=== PATIENT | male | born 1960 | race Caucasian/White ===

== ENCOUNTER 2016-05-12 18:54 | Emergency (ER) | payer OTHER ==
[2016-05-12 19:02] VITALS: BP 133/95; PULSE 76; TEMP 98.1; BMI 22.6
--- NOTE | 2016-05-12 19:24 | PDOC ---
History of Present Illness - General History Source: Patient Exam Limitations: No Limitations - History of Present Illness Initial Comments: 05/12/16 19:43 The patient is a 55 year old male, with no significant past medical history, who presents to the emergency department with a tick bite to left side of his head. This evening, the patient reports that he felt a small lump on left side of his head. A family member with him removed a tick from the left side of his head. The patient presents to the ED for further evaluation. The patient has no other complaints currently in the ED. Allergies: None reported. <Margareth Herrera - Last Filed: 05/12/16 19:45> <Iqra Walsh - Last Filed: 05/12/16 23:53> - General Chief Complaint: Bite Stated Complaint: "I HAVE A TICK BITE" Time Seen by Provider: 05/12/16 19:19 Past History <Margareth Herrera - Last Filed: 05/12/16 19:45> - Past Medical History Suicide Attempt (Hx): No Other medical history: DENIES - Psycho/Social/Smoking Cessation Hx Anxiety: No Suicidal Ideation: No Smoking Status: No Smoking History: Never smoked Number of Cigarettes Smoked Daily: 0 Hx Alcohol Use: No Drug/Substance Use Hx: No Substance Use Type: None <Iqra Walsh - Last Filed: 05/12/16 23:53> - Past Medical History Allergies/Adverse Reactions: Allergies Allergy/AdvReac Type Severity Reaction Status Date / Time No Known Allergies Allergy Verified 05/12/16 18:57 Home Medications: Ambulatory Orders No Home Medications 03/23/12 Doxycycline Hyclate 100 mg PO BID #28 capsule 05/12/16 Review of Systems - Review of Systems Able to Perform ROS?: Yes Comments:: 05/12/16 19:39 GENERAL/CONSTITUTIONAL: No fever or chills. No weakness. HEAD: +Tick bite to the left side of the head. SKIN: No rash. <Margareth Herrera - Last Filed: 05/12/16 19:45> *Physical Exam - Vital Signs Last Vital Signs Temp Pulse Resp BP Pulse Ox 98.1 F 76 18 133/95 97 05/12/16 18:55 05/12/16 18:55 05/12/16 18:55 05/12/16 18:55 05/12/16 18:55 - Physical Exam Comments: 05/12/16 19:36 GENERAL: Awake, alert, and fully oriented, in no acute distress. HEAD: Small puncture wound to left occiput, mild localized edema without erythema or warmth. No tick visualized. SKIN: Warm, dry, normal turgor, no rashes noted. <Margareth Herrera - Last Filed: 05/12/16 19:45> - Vital Signs Last Vital Signs Temp Pulse Resp BP Pulse Ox 98.1 F 76 18 133/95 97 05/12/16 18:55 05/12/16 18:55 05/12/16 18:55 05/12/16 18:55 05/12/16 18:55 <Iqra Walsh - Last Filed: 05/12/16 23:53> Medical Decision Making - Medical Decision Making Pt presented after finding a tick on his head. He states that the [place] behind his house have a lot of ticks, he has been exposed to lyme in the past. I offered serologic testing, however, he refused and requested doxycycline due to his history of prior exposure (as well as multiple family members). Two week supply of doxy sent to pharmacy. <Iqra Walsh - Last Filed: 05/12/16 23:53> *DC/Admit/Observation/Transfer - Attestations Scribe Attestion: 05/12/16 19:28 Documentation prepared by Margareth Herrera, acting as medical insurance claims specialist for Iqra Walsh MD. <Margareth Herrera - Last Filed: 05/12/16 19:45> - Discharge Dispostion Admit: No <Iqra Walsh - Last Filed: 05/12/16 23:53> Diagnosis at time of Disposition: Tick bite Qualifiers: Encounter type: initial encounter Qualified Code(s): W57.XXXA - Bitten or stung by nonvenomous insect and other nonvenomous arthropods, initial encounter - Discharge Dispostion Disposition: HOME Condition at time of disposition: Stable - Prescriptions Prescriptions: Doxycycline Hyclate 100 mg PO BID #28 capsule - Patient Instructions Printed Discharge Instructions: DI for Insect Bites and Stings
== END 2016-05-12 19:43 | disposition home or self-care (01) ==
LOC: FER 18:54
DX: S00.96XA Insect bite (nonvenomous) of unspecified part of head, initial encounter (principal); W57.XXXA Bitten or stung by nonvenomous insect and other nonvenomous arthropods, initial encounter; Y93.9 Activity, unspecified; Y92.9 Unspecified place or not applicable
CPT/HCPCS: 99282-25